=== PATIENT | male | born 2000 | race Two or more races ===

== ENCOUNTER 2022-02-24 20:02 | Emergency (ER) | payer SELFPAY ==
[~2022-02-24] VITALS: Ht 193 cm; Wt 86.4 kg
[2022-02-24 20:08] VITALS: BP 169/84
== END 2022-02-24 23:57 | disposition left against medical advice (07) ==
LOC: M ED 20:02
DX: Z53.21 Procedure and treatment not carried out due to patient leaving prior to being seen by health care provider (principal)

== ENCOUNTER 2024-08-17 19:57 | Emergency (ER) | payer OTHER, SELFPAY ==
[~2024-08-17] VITALS: Ht 193 cm; Wt 82.7 kg
[2024-08-17 22:02] VITALS: BP 137/84; TEMP 97.9; O2SAT 100
== END 2024-08-17 22:53 | disposition home or self-care (01) ==
LOC: M ED 19:57
DX: S99.911A Unspecified injury of right ankle, initial encounter (principal); Y92.9 Unspecified place or not applicable; Y93.67 Activity, basketball; Y99.9 Unspecified external cause status; Z88.2 Allergy status to sulfonamides